=== PATIENT | male | born 1955 | race Caucasian/White ===

== ENCOUNTER → 2019-10-13 | Outpatient (CLI) | payer MEDICARE, OTHER ==
[~2019-10-13] MED LIST: LANTUS100 U/ML SQ; LASIX 20MG TABL20 MG PO; LASIX 40MG TABL40 MG PO; LIPITOR 10MG10 MG PO; NIZORAL SHAMPO120 M1 TP; NORVASC 10MG10 MG PO; PRILOSEC10 MG PO; PRINIVIL10 MG PO; TENORMIN100 MG PO; ZAROXOLYN 2.52.5 MG PO; ZESTRIL40 MG PO; ZOLOFT 100MG100 MG PO
== END ==
LOC: COL.VAS 12:42
DX: Z01.818 Encounter for other preprocedural examination (principal); N18.4 Chronic kidney disease, stage 4 (severe)

== ENCOUNTER 2020-04-10 10:36 | Day surgery (SDC) | payer MEDICARE, OTHER ==
[~2020-04-10] VITALS: Ht 185.4 cm; Wt 95.9 kg
[2020-04-10 11:40] LABS: CALCIUM 9.3 mg/dL (8.4-10.2); CREATININE, serum 4.84 (0.66-1.25); POTASSIUM 4.1 mmol/L (3.4-5.0)
[2020-04-10 11:47] VITALS: BP 186/79; PULSE 61; TEMP 98.5
[2020-04-10] MEDS ORDERED: ZAROXOLYN 2.52.5 MG PO (11:56)
[2020-04-10] MEDS ORDERED: GLUCOPHAGE1000 MG PO (11:57)
[2020-04-10] MEDS ORDERED: ELIQUIS 2.5 PO (11:57)
--- NOTE | 2020-04-10 12:27 | NUR ---
HERE TO SEE PT. PT DID NOT HOLD ELIQUIS AND THERE FOR SURGERY WILL BE RESCHEDULED.
--- NOTE | 2020-04-10 13:00 | NUR ---
IV site discontinued with all parts intact. Reviewed with pt to hold his Eliquis until after surgery, and date/time of arrival for procedure. Appointment card provided. Pt escorted to private car via wheel chair. Pt accompanied home by his son.
== END 2020-04-10 13:00 | disposition home or self-care (01) ==
LOC: SDCO 10:36
PROVIDERS: Surgery
DX: I12.9 Hypertensive chronic kidney disease with stage 1 through stage 4 chronic kidney disease, or unspecified chronic kidney disease (principal); E11.22 Type 2 diabetes mellitus with diabetic chronic kidney disease; Z53.8 Procedure and treatment not carried out for other reasons; N18.4 Chronic kidney disease, stage 4 (severe); I48.91 Unspecified atrial fibrillation; Z79.01 Long term (current) use of anticoagulants; Z79.899 Other long term (current) drug therapy; E78.5 Hyperlipidemia, unspecified; Z79.4 Long term (current) use of insulin; Z87.891 Personal history of nicotine dependence
CPT/HCPCS: J0690; J2704; J7030

== ENCOUNTER 2020-04-12 09:34 | Day surgery (SDC) | payer MEDICARE, OTHER ==
--- NOTE | 2020-04-10 13:00 | NUR ---
IV site discontinued with all parts intact. Reviewed with pt to hold his Eliquis till after surgery, and to arrive at 0930 on 04/12 for his procedure. Pt voices understanding. Appointment card given. Pt escorted to private car via wheel chair. Pt accompanied home by his son.
[~2020-04-12] VITALS: Ht 185.4 cm; Wt 97.0 kg
[2020-04-12] VITALS (7 sets, daily range): BP systolic 113–176; BP diastolic 58–76; PULSE 54–66; TEMP 97.6
[~2020-04-12 09:34] MED LIST changes: +ELIQUIS 2.5 PO; +GLUCOPHAGE1000 MG PO
--- NOTE | 2020-04-12 14:30 | NUR ---
Patient returns to room 6 per cart from surgery accompanied by Brice BENITEZ and Brian RN. Patient is on oxygen per mask at 10L and has oral airway in place. Siderails up x2 and call light in reach. WOMEN DESIGNER stays in room. Patient moving arms and legs. IV infusing at TKO. Siderails up x2. Will continue to monitor.
[2020-04-12] MEDS ORDERED: NORCO 325 MG-51 TAB PO (14:33)
--- NOTE | 2020-04-12 14:39 | NUR ---
Accucheck 60 and 1/2 amp of 50% Dextrose given by Brice Solorio WEED THINNER. Patient opens eyes. Oral airway removed by WEED THINNER who has stayed at bedside.
--- NOTE | 2020-04-12 14:45 | NUR ---
More awake and now and sipping on water. Oxygen mask removed and placed on nasal cannula at 3L to maintain sats at 93-95%. Dressing dry on the left arm. Fingers warm to touch.
--- NOTE | 2020-04-12 15:00 | NUR ---
Drinkning orange juice. States that he is wanting to sleep.
--- NOTE | 2020-04-12 15:15 | NUR ---
Repeat accucheck 97. Continues to sip on orange juice.
--- NOTE | 2020-04-12 15:30 | NUR ---
Resting with eyes closed. Dressing on the left forearm dry.
--- NOTE | 2020-04-12 16:00 | NUR ---
Awake and tolerated juice. Room air sats 93%. Denies pain or nausea. IV discontinued and site clear.
--- NOTE | 2020-04-12 16:20 | NUR ---
Given dismissal instructions and voices understanding of these. Instructed on checking for thrill on left arm daily. Provided instruction sheet. Assisted with dressing.
--- NOTE | 2020-04-12 16:27 | NUR ---
Dismissed to home driven by son and taken to the front door per wheelchair and assisted into vehicle with instructions in hand.
== END 2020-04-12 16:27 | disposition home or self-care (01) ==
LOC: SDCO 09:34
DX: E11.22 Type 2 diabetes mellitus with diabetic chronic kidney disease (principal); E11.42 Type 2 diabetes mellitus with diabetic polyneuropathy; I13.0 Hypertensive heart and chronic kidney disease with heart failure and stage 1 through stage 4 chronic kidney disease, or unspecified chronic kidney disease; I50.9 Heart failure, unspecified; N18.4 Chronic kidney disease, stage 4 (severe); D63.1 Anemia in chronic kidney disease; I48.91 Unspecified atrial fibrillation; E78.5 Hyperlipidemia, unspecified; K21.9 Gastro-esophageal reflux disease without esophagitis; F32.9 Major depressive disorder, single episode, unspecified; F41.9 Anxiety disorder, unspecified; Z79.4 Long term (current) use of insulin; Z79.01 Long term (current) use of anticoagulants; Z87.891 Personal history of nicotine dependence; Z79.899 Other long term (current) drug therapy
CPT/HCPCS: J0690; J1644; J2405; J2704; J3010; J7030

== ENCOUNTER 2020-08-21 18:32 | Inpatient (IN) | payer MEDICARE, OTHER ==
[~2020-08-21] VITALS: Ht 182.9 cm; Wt 98.7 kg
[~2020-08-21 18:32] MED LIST changes: +NORCO 325 MG-51 TAB PO
[2020-08-21 22:09] VITALS: BP 171/67; PULSE 74; TEMP 97.7
[2020-08-22] VITALS (7 sets, daily range): BP systolic 160–180; BP diastolic 58–66; PULSE 59–66; TEMP 97.6–98.3
--- NOTE | 2020-08-22 05:11 | NUR ---
PATIENT ARRIVED TO FLOOR AT 2114 ACCOMPANIED BY HIS SON. PATIENT IS IN GOOD MOOD STATING HE FEELS GOOD TO BE ABLE TO STRETCH OUT AND RELAX. PATIENT DOES C/O PAIN WITH MOVEMENT D/T CATHETER, BUT STATES HE IS BREATHING BETTER AND MOVING EASIER D/T FLUID THAT HAS ALREADY BEEN MOVED D/T IV LASIX GIVEN IN [facility] ED. PATIENT IS NOTED - BLE - TO BE EDEMATOUS, RED AND BLISTERED. NO WEEPING OR HEAT NOTED TO EITHER LEG. NO C/O PAIN OR ANY OTHER CONCERNS NOTED.
[2020-08-22 07:23] LABS: INR 1.8 (0.8-3.0); PROTHROMBIN TIME 20.1 SECONDS (9.7-12.8)
[2020-08-22 07:26] LABS: PARTIAL THROMBOPLASTIN TIME 39.6 SECONDS (26.0-37.0)
[2020-08-22 07:32] LABS: BASO % 0.4 % (0.0-2.0); EOS # 0.2 (0.0-0.7); GRAN # 5.5 (1.4-6.5); GRAN % 75.6 % (42.2-75.2); LYMPH # 0.8 (1.2-3.4); LYMPH % 11.3 % (20.0-51.0); MEAN CELL VOLUME 79 fl (80.0-100.0); MEAN CORPUSCULAR HGB CONC 31 g/dl (33.0-37.0); MEAN PLATELET VOLUME 11.1 fl (7.4-10.4); MONO # 0.8 (0.1-0.6); MONO % 10.2 % (1.7-9.3); PLATELET COUNT 151 K/mm3 (130-400); RED BLOOD COUNT 3.15 M/mm3 (4.20-5.60); REDCELL DISTRIBUTION WIDTH-CV 18.5 % (11.5-14.5)
[2020-08-22 07:33] LABS: HEMOGLOBIN 7.8 g/dl (13.5-18.0); MEAN CORPUSCULAR HEMOGLOBIN 25 pg (27.0-31.0)
[2020-08-22 07:37] LABS: PH 5 (5-8); SQUAMOUS EPITHELIAL None Seen /hpf; URINE APPEARANCE Clear; URINE BACTERIA Rare /hpf; URINE BILIRUBIN Negative (NEGATIVE); URINE BLOOD 2+ (NEGATIVE); URINE COLOR Yellow; URINE GLUCOSE Negative (NEGATIVE); URINE KETONE Negative (NEGATIVE); URINE LEUKOCYTE ESTERASE 2+ (NEGATIVE); URINE NITRATE Negative (NEGATIVE); URINE PROTEIN(semi-quant) 2+ (NEGATIVE); URINE RBC 20-50 /hpf; URINE UROBILINOGEN Negative (NEGATIVE)
[2020-08-22 07:38] LABS: ALBUMIN 3.4 gm/dL (3.5-5.0); CALCIUM 8.9 mg/dL (8.4-10.2); CREATININE, serum 5.45 (0.66-1.25); PHOSPHOROUS 5.9 mg/dL (2.5-4.5)
[2020-08-22 07:42] LABS: IRON,SERUM 30 ug/dL (35-150)
[2020-08-22 07:52] LABS: TOTAL IRON BINDING CAPACITY 375 ug/dL (261-462)
[2020-08-22 08:29] LABS: COLLECTION METHOD CATHETER
--- NOTE | 2020-08-22 09:00 | NUR ---
Assessment complete. Pt resting in bed, A&O x 4, denies pain or c/o at this time. BLE with 2+ edema and redness, blister, no drainage noted. Physical assessment otherwise unremarkable. IV Bumex infusing to right hand site per orders without s/s of complications. Urinary catheter indwelling with clear, yellow urine. No further needs reported. Call light in reach.
--- NOTE | 2020-08-22 13:18 | NUR ---
First visit from the drum drier. No needs right now.
--- NOTE | 2020-08-22 13:54 | NUR ---
SW met with the patient to discuss discharge plan. The patient lives alone in [place]. He states that his son, Shaan (ph#[phone]), lives in [place] and his daughter, Radha (ph#[phone]), lives in [place]. He reports independence with ADLs, but sometimes could need some help showering. He has a cane. The patient's PCP is Dr. Emile Beatty and he receives his medications from [facility]. He reports no difficulties obtaining his meds. The patient does not have a DPOA-HC, but he was interested in obtaining a form. SW provided. The patient states that his daughter is on his way up here and he would prefer to fill it out, once she gets here. The patient states that he is not and has two children: Radha and Shaan. The patient plans to return home upon discharge. PT recommends home health. SW discussed this with the patient. The patient is interested in home health and agreeable to using [facility]. GIORGI contacted and faxed a referral to Adriane at [facility]. Adriane reports that they will be able to accept the patient for services. SW to continue to follow. *Discharge plan: home with home health*
--- NOTE | 2020-08-22 18:36 | NUR ---
Pt resting in bed with eyes closed, uneventful shift. IV infusion continues. Call light in reach.
--- NOTE | 2020-08-22 20:00 | NUR ---
Report received, assumed care for hourly shift manager. Assessment complete. A&Ox3. Denies nausea/short of breath. States his muscles are sore but denies pain need intervention. Barbosa cath with clear yellow urine. Bumex drip to right hand IV @5ml/hr. Plan of care discussed for this shift to include HS meds/bumex drip/calling for questions/concerns. Verbalies understanding/denies needs. Call light in reach. Will monitor.
[2020-08-23 00:20] VITALS: BP 168/61; PULSE 63; TEMP 98.3
[2020-08-23 04:34] VITALS: BP 163/59; PULSE 60; TEMP 97.9
[2020-08-23 07:08] LABS: BASO % 0.4 % (0.0-2.0); EOS # 0.1 (0.0-0.7); EOS % 1.2 % (0-4.0); GRAN # 7.2 (1.4-6.5); GRAN % 79.7 % (42.2-75.2); LYMPH # 0.8 (1.2-3.4); LYMPH % 9.2 % (20.0-51.0); MEAN CELL VOLUME 79 fl (80.0-100.0); MEAN CORPUSCULAR HGB CONC 31 g/dl (33.0-37.0); MEAN PLATELET VOLUME 10.5 fl (7.4-10.4); MONO # 0.8 (0.1-0.6); MONO % 8.7 % (1.7-9.3); PLATELET COUNT 145 K/mm3 (130-400); RED BLOOD COUNT 3.38 M/mm3 (4.20-5.60); REDCELL DISTRIBUTION WIDTH-CV 18.3 % (11.5-14.5)
[2020-08-23 07:14] LABS: HEMATOCRIT 26.6 % (42.0-52.0); HEMOGLOBIN 8.2 g/dl (13.5-18.0); MEAN CORPUSCULAR HEMOGLOBIN 24 pg (27.0-31.0)
[2020-08-23 07:15] LABS: ALBUMIN 3.6 gm/dL (3.5-5.0); CREATININE, serum 5.38 (0.66-1.25); PHOSPHOROUS 5.7 mg/dL (2.5-4.5); POTASSIUM 3.6 mmol/L (3.4-5.0)
[2020-08-23 07:26] VITALS: BP 165/57; PULSE 62; TEMP 98.1
--- NOTE | 2020-08-23 08:44 | NUR ---
Pt awake and alert upon entry, some C/O pain in lower extremities. No other complaints at this time. Shift assessments complete, left Pt in bed, alarm on.
--- NOTE | 2020-08-23 09:36 | NUR ---
Adriane, at [facility], reports that they do not take Medicare advantage plans and will unfortunately not be able to take the patient. SW updated durable medical equipment repairer, Rosemarie.
[2020-08-23 12:02] VITALS: BP 167/57; PULSE 64; TEMP 98
--- NOTE | 2020-08-23 13:23 | NUR ---
Initial visit; Patient thanked Quality Control Technician for looking in on him and offering God's blessings.
--- NOTE | 2020-08-23 16:15 | NUR ---
Blanker Operator contacted Anita at [facility] who advised they are able to accept Medicare [employer] and they serve [place]. Anita advised they have PT and Nursing in [place] but may not have OT. GIORGI met with patient who is agreeable to [facility] and would like a referral sent. GIORGI faxed referral to Anita at [facility]. Discharge Plan: Home with [facility].
[2020-08-23 16:20] VITALS: BP 176/63; PULSE 64; TEMP 98.2
--- NOTE | 2020-08-23 18:17 | NUR ---
Pt resting in the room today, no C/O pain throughout the day. VS have remained stable.
--- NOTE | 2020-08-23 20:00 | NUR ---
Assessment complete. Patient is alert and oriented with no complaints of pain. Bumex gtt infusing into right hand IV at 5ml/hr. Barbosa is draining clear/yellow urine. Lung sounds are clear. Bilateral lower extremity edema is noted with 2+ pitting. Heel protectors are on but no breakdown is noted. No new concerns from patient. Call light in reach.
[2020-08-23 20:06] VITALS: BP 182/76; PULSE 62; TEMP 98.2
--- NOTE | 2020-08-23 23:24 | NUR ---
BP 172/60 at this time. 25 mg PO apresoline administered per order. Patient is asymptomatic. Will continue to monitor.
[2020-08-24 03:51] VITALS: BP 192/73; PULSE 62; TEMP 98.1
[2020-08-24 07:00] LABS: BASO % 0.3 % (0.0-2.0); EOS # 0.2 (0.0-0.7); EOS % 1.7 % (0-4.0); GRAN # 7.4 (1.4-6.5); GRAN % 79.3 % (42.2-75.2); LYMPH # 0.9 (1.2-3.4); LYMPH % 9.6 % (20.0-51.0); MEAN CELL VOLUME 80 fl (80.0-100.0); MEAN CORPUSCULAR HGB CONC 31 g/dl (33.0-37.0); MEAN PLATELET VOLUME 10.3 fl (7.4-10.4); MONO # 0.8 (0.1-0.6); MONO % 8.5 % (1.7-9.3); PLATELET COUNT 159 K/mm3 (130-400); RED BLOOD COUNT 3.51 M/mm3 (4.20-5.60); REDCELL DISTRIBUTION WIDTH-CV 18.7 % (11.5-14.5)
[2020-08-24 07:01] LABS: ALBUMIN 3.5 gm/dL (3.5-5.0); CALCIUM 9.1 mg/dL (8.4-10.2); CREATININE, serum 5.79 (0.66-1.25); HEMATOCRIT 28.1 % (42.0-52.0); HEMOGLOBIN 8.6 g/dl (13.5-18.0); MEAN CORPUSCULAR HEMOGLOBIN 25 pg (27.0-31.0); PHOSPHOROUS 5.8 mg/dL (2.5-4.5); POTASSIUM 3.6 mmol/L (3.4-5.0)
[2020-08-24 07:31] VITALS: BP 172/61; PULSE 61; TEMP 98.3
--- NOTE | 2020-08-24 09:10 | NUR ---
Pt doing well, ate a full breakfast. He has heel protectors on. When assessing lower extremities, he did complain of pain in his right foot/ankle area when touched. He stated that it is just a sharp pain, but then goes away. No pain otherwise. Therapy in to work with patient. Pt intially refused therapy, but encouraged him to work with her so that he does not get weak.
[2020-08-24] MEDS ORDERED: NEURONTIN100 MG/CAP PO (11:21)
[2020-08-24 11:47] VITALS: BP 170/60; PULSE 62; TEMP 98
--- NOTE | 2020-08-24 13:30 | NUR ---
Discharge instructions reviewed with pt to include follow up appointment and prescription. TELE called and notified of discharge. Pt states that his ride will be here around 2:00pm.
--- NOTE | 2020-08-24 14:20 | NUR ---
Reviewed discharge instructions again with patient to include his daughter. Daughter, Radha, had a lot of questions as she stated her dad will change what we told him. Reviewed eating a low sodium diet and discussed his follow up appointment
--- NOTE | 2020-08-24 15:04 | NUR ---
Pt escorted out at this time
--- NOTE | 2020-08-24 16:28 | NUR ---
Car Wash Manager met with patient and patient's daughter, Radha to review discharge plan. Patient to discharge home today with [facility]. Patient and Radha are agreeable to this plan. GIORGI explained what services would fall under home health and what services, like grocery shopping, would be considered private duty. Patient verbalized understanding. Patient is interested in Assisted Living in [place] so GIORGI provided contact information for the facilities in [place] including [facility], [facility], and [facility]. GIORGI advised that [place] is not covered by Medicare. Patient is interested in applying for Medicaid so GIORGI consulted Khadijah, Financial Counselor who will follow up next week. Patient completed DPOA-HC form which designated his daughter, Radha (ph#[phone]) and son, Shaan. GIORGI and Dr. Pugh signed as witnesses. GIORGI provided original and copies to patient then placed copy in chart. GIORGI contacted Arely at [facility] and faxed discharge orders. Discharge Plan: Home today with [facility].
== END 2020-08-24 15:04 | disposition home health service (06) | DRG 683 ==
LOC: MEDICAL 18:32
PROVIDERS: ADMIT Internal Medicine Nephrology
DX: N17.9 Acute kidney failure, unspecified (principal); I16.1 Hypertensive emergency; E87.70 Fluid overload, unspecified; N18.4 Chronic kidney disease, stage 4 (severe); I12.9 Hypertensive chronic kidney disease with stage 1 through stage 4 chronic kidney disease, or unspecified chronic kidney disease; D63.1 Anemia in chronic kidney disease; E11.22 Type 2 diabetes mellitus with diabetic chronic kidney disease; E11.42 Type 2 diabetes mellitus with diabetic polyneuropathy; Z87.891 Personal history of nicotine dependence
CPT/HCPCS: J1650; J1815; J2916; Q5106